=== PATIENT | male | born 1945 | race Caucasian/White ===

== ENCOUNTER 2017-04-09 15:19 | Observation (INO) | payer OTHER ==
[2017-04-09 16:00] VITALS: BMI 24.3
--- NOTE | 2017-04-09 17:03 | PDOC ---
History of Present Illness - General History Source: Patient Exam Limitations: No Limitations <Jazmine Villarreal - Last Filed: 04/10/17 01:19> <David Barnes - Last Filed: 04/10/17 19:25> - General Chief Complaint: Blood Pressure Problem Stated Complaint: CHEST PAIN Time Seen by Provider: 04/09/17 16:06 - History of Present Illness Initial Comments: 04/09/17 17:58 The patient is a 72 year old male, with a significant past medical history of hypertension and hyperlipidemia, who presents to the emergency department with chest pain and dizziness.Pt reports waking up feeling well, he had a mild headache this morning (which is typical for him) and promoted him to check his BP and he noticed it was a bit elevated so he took his losartan, he later took his BP and it was still slightly elevated so he took another losartan. He then began to feel some epigastric pressure w/o any sob, n/v, diaphoresis. later when he was standing/walking around, he developed dizizness/lightheadedness and felt diaphoretic and vomited nbnb. pt feels improved currently, EMS was called and he was given NTG and baby asa x3. Pt denies a history of exertional chest pain or sob, states he is fairly active. Pt does endorse feeling stressed at home as he is taking care of his infirm . He denies fever or chills. He denies any SOB prior or during the episode or any exertion. Allergies: None Past surgical history: Cholecystectomy (2013), tonsillectomy Social History: Former smoker (20 a day)(quit in 2013)(50 year history). PCP Dr. Lucho Gurrola (Jazmine Villarreal) Past History <Jazmine Villarreal - Last Filed: 04/10/17 01:19> - Past Medical History Anemia: No Asthma: No HTN: Yes Hypercholesterolemia: (Yes, HIGH TRIGLYCERIDES) - Surgical History Appendectomy: Yes Cholecystectomy: Yes (03/2014) - Immunization History Immunization Up to Date: Yes - Psycho/Social/Smoking Cessation Hx Anxiety: No Suicidal Ideation: No Smoking History: Former smoker Have you smoked in the past 12 months: No Number of Cigarettes Smoked Daily: 20 If you are a former smoker, when did you quit?: 2013 Information on smoking cessation initiated: No Hx Alcohol Use: No Drug/Substance Use Hx: No Substance Use Type: None Hx Substance Use Treatment: No <David Barnes - Last Filed: 04/10/17 19:25> - Past Medical History Allergies/Adverse Reactions: Allergies Allergy/AdvReac Type Severity Reaction Status Date / Time No Known Allergies Allergy Verified 04/09/15 16:59 Home Medications: Ambulatory Orders Docosahexanoic Acid/Epa [Fish Oil Softgel] 1 each PO DAILY 04/29/12 Cholecalciferol (Vitamin D3) [Vitamin D3] 1,000 unit PO DAILY 03/28/14 Lactobacillus Acidophilus [Bacid -] 1 each PO BID #14 tab 04/19/15 Losartan Potassium 25 mg PO DAILY 04/09/17 Review of Systems - Review of Systems Able to Perform ROS?: Yes <Jazmine Villarreal - Last Filed: 04/10/17 01:19> <David Barnes - Last Filed: 04/10/17 19:25> - Review of Systems Comments:: 04/09/17 17:58 CONSTITUTIONAL: No reported: Fever, Chills, Diaphoresis, Generalized Weakness, Malaise, Loss of Appetite HEENT: No reported: Rhinorrhea, Nasal Congestion, Throat Pain, Throat Swelling, Difficulty Swallowing, Mouth Swelling, Ear Pain, Eye Pain, Visual Changes CARDIOVASCULAR: Present: chest pain, lightheadedness. No reported: Syncope, Palpitations, Irregular Heart Rate, Peripheral Edema RESPIRATORY: No reported: Cough, Shortness of Breath, SOB with Exertion, Orthopnea, Wheezing , Stridor, Hemoptysis GASTROINTESTINAL: +Nausea, Vomiting, No reported: Abdominal pain, Abdominal Distension, Diarrhea, Constipation, Melena, Hematochezia GENITOURINARY: No reported: Dysuria, Frequency, Urgency, Hesitancy, Flank Pain, Genital Pain MUSCULOSKELETAL: No reported: Myalgia, Arthralgia, Joint Swelling, Back pain, Neck Pain SKIN: No reported: Rash, Itching, Pallor HEMEATOLOGIC/IMMUNOLOGIC: No reported: Easy Bleeding, Easy Bruising, Lymphadenopathy, Frequent infections ENDOCRINE: No reported: Unexplained Weight Gain, Unexplained Weight Loss, Heat Intolerance , Cold Intolerance NEUROLOGIC: No reported: Headache, Focal Weakness, Paresthesias, Vertigo, Unsteady Gait, Seizure, Mental Status Changes, Incontinence PSYCHIATRIC: No reported: Anxiety, Depression (Jazmine Villarreal) *Physical Exam <Jazmine Villarreal - Last Filed: 04/10/17 01:19> <David Barnes - Last Filed: 04/10/17 19:25> - Vital Signs Last Vital Signs Temp Pulse Resp BP Pulse Ox 98.1 F 59 L 18 141/77 95 04/10/17 19:11 04/10/17 19:11 04/10/17 19:11 04/10/17 19:11 04/10/17 09:00 - Physical Exam Comments: 04/09/17 17:58 GENERAL: The patient is awake, alert, and fully oriented, Nontoxic - in no acute distress. HEAD: Normocephalic, atraumatic. EYES: extraocular movements intact, sclera anicteric, conjunctiva clear. ENT: Normal voice, Moist mucous membranes, duller light reflex in R TM NECK: Normal range of motion, supple LUNGS: Breath sounds equal, clear to auscultation bilaterally. No wheezes, no rhonchi, no rales. HEART: Regular rate and rhythm, without murmur, rub or gallop. ABDOMEN: Soft, nontender, normoactive bowel sounds. No guarding, no rebound.No CVA tenderness EXTREMITIES: Normal range of motion, no edema. No clubbing or cyanosis. No cords, erythema, or tenderness. NEUROLOGICAL: No facial assymetry, Normal speech, normal motor 5/5 in upper/ lower, abnormal finger to nose and rapid alternative movenents in LUE, non ataxic gait PSYCH: Normal mood, normal affect. SKIN: Warm, Dry, normal turgor. (Jazmine Villarreal) Heart Score/ECG Review <Jazmine Villarreal - Last Filed: 04/10/17 01:19> <David Barnes - Last Filed: 04/10/17 19:25> - ECG Impressions Comment:: 04/09/17 18:31 Twelve-lead EKG was performed and reviewed by me. There is normal sinus rhythm with a normal rate. Rate of 63 The axis is normal. The intervals are normal. There is normal R wave progression There are no ST or T wave abnormalities. Impression: Normal twelve-lead EKG (David Barnes) ED Treatment Course - LABORATORY CBC & Chemistry Diagram: 04/09/17 17:05 04/09/17 17:05 <Jazmine Villarreal - Last Filed: 04/10/17 01:19> - LABORATORY CBC & Chemistry Diagram: 04/09/17 17:05 04/09/17 17:05 <David Barnes - Last Filed: 04/10/17 19:25> - ADDITIONAL ORDERS Additional order review: Laboratory Results 04/10/17 00:21 Ur Specific [place] 1.010 04/09/17 17:05 RBC 4.75 MCV 88.5 MCHC 34.6 RDW 13.0 MPV 9.9 Neutrophils % 80.7 Lymphocytes % 10.8 D Monocytes % 6.4 Eosinophils % 1.3 Basophils % 0.8 - RADIOLOGY Radiology Studies Ordered: Category Date Time Status HEAD CT WITHOUT CONTRAST [CT] Stat CT Scan 04/09/17 23:03 Completed CHEST X-RAY PORTABLE* [RAD] Stat Radiology 04/09/17 16:15 Completed - Medications Given in the ED: ED Medications Discontinued Medications Generic Name Dose Route Start Last Admin Trade Name Freq PRN Reason Stop Dose Admin Acetaminophen 650 mg 04/09/17 19:59 04/09/17 20:06 Tylenol - PO 04/09/17 20:00 650 mg ONCE ONE Administration Al Hydroxide/Mg Hydroxide 30 ml 04/09/17 17:04 04/09/17 18:13 Mylanta Suspension - PO 04/09/17 17:05 30 ml ONCE ONE Administration Famotidine/Sodium Chloride 20 50 mls @ 100 mls/hr 04/09/17 17:04 04/09/17 18:12 mg/ Miscellaneous IVPB 04/09/17 17:33 100 mls/hr ONCE ONE Administration Sodium Chloride 1,000 mls @ 1,000 mls/hr 04/09/17 19:53 04/09/17 20:06 Normal Saline - IV 04/09/17 20:52 1,000 mls/hr .Q1H ONE Administration Sodium Chloride 1,000 mls @ 1,000 mls/hr 04/09/17 21:52 04/09/17 21:55 Normal Saline - IV 04/09/17 22:51 1,000 mls/hr .Q1H ONE Administration Meclizine HCl 25 mg 04/09/17 18:30 04/09/17 19:12 Antivert - PO 04/09/17 18:31 25 mg ONCE ONE Administration Medical Decision Making <Jazmine Villarreal - Last Filed: 04/10/17 01:19> <David Barnes - Last Filed: 04/10/17 19:25> - Medical Decision Making 04/09/17 17:05 72y M hx of hl, htn (noncomplaint with meds), former smoker, prseents with chest pain. Pt notes that he had a mild headache today which led him to take his BP, was noted to be high so he took a losartan, later checked his bp again and was elevated, then developed some epigastric/substernal prsesure sensation that was constant, and later had several episodes of dizziness when standing up which led to diaphoresis, and n/v. pt given 1x ntg, antiemetic and 3 baby asa by EMS. on exam the pt appears well and in no distress vitals wnl here differential includes pancreatitis, gastritis, anemia, metabolic derangement, consider acs although his symptoms are someone atypical will ck labs, trops, lipase will give pepcid/maalox PCP Dr. Lucho Gurrola 04/09/17 18:30 upon further evaluation it seems the pts dizziness was the first thing to bother him, followed by vomiting and chest discomfort. ?vertigo will give meclizine labs reviewed and are unremarkable 04/09/17 23:04 pt still feeling persistent dizziness when ambulating, as well as when turning his head or nodding his head. however states he feels fine when he is sitting still. will obtain CT due to persisetnet symptoms and admit for observation 04/10/17 00:52 ct negative pt does complaing of fullness of his R ear - i suspect his dizziness/vertigo may be peripheral in nature, pts finger to nose and rapid alternating movements are slightly abnormal on LUE - will have pt be evluated by neuro will place in observation status will admit to hospitalist service. A portion of this note was documented by scribe services under my direction. I have reviewed the details of the note, within reason, and agree with the documentation with the following case summary and management plan written by me 04/10/17 01:[address] crichlow agreed with admission for further management Case discussed in detail with admitting physician including history, physical exam and ancillary studies. Admitting physician has assumed care for the patient, will follow all pending diagnostics and will complete the evaluation and treatment. (David Barnes) *DC/Admit/Observation/Transfer <Jazmine Villarreal - Last Filed: 04/10/17 01:19> - Discharge Dispostion Admit: Yes <David Barnes - Last Filed: 04/10/17 19:25> Diagnosis at time of Disposition: Vertigo Chest pain Qualifiers: Chest pain type: unspecified Qualified Code(s): R07.9 - Chest pain, unspecified - Discharge Dispostion Condition at time of disposition: Stable - Referrals - Attestations Scribe Attestion: 04/09/17 17:59 Documentation prepared by ALLISON Peterson, acting as medical office specialist for David Barnes MD. (Jazmine Villarreal)
[2017-04-09] MEDS ORDERED: FAMOTIDINE 20 MG/50 ML IVPB 20 MG in PREMIX 50 IVPB ONE (17:04)
[2017-04-09] MEDS ORDERED: MAG HYDROX/AL HYDROX/SIMETH 355 ML ORAL.SUSP PO ONE (17:04)
[2017-04-09 17:19] LABS: BASOPHIL 0.8 % (0-2.0); EOSINOPHIL 1.3 % (0-4.5); MCH 30.7 pg (25.7-33.7); MCHC 34.6 g/dl (32.0-35.9); MEAN CELL VOLUME 88.5 fl (80-96); MEAN PLT VOLUME 9.9 fl (7.5-11.1); NEUTROPHILS 80.7 % (42.8-82.8); PLATELET COUNT 153 K/MM3 (134-434); WHITE BLOOD COUNT 9.4 K/mm3 (4.0-10.0)
[2017-04-09 17:46] LABS: ALBUMIN 3.9 g/dl (3.4-5.0); ANION GAP 9 (8-16); CALCIUM 9.4 mg/dL (8.5-10.1); CO2 27 mmol/L (21-32); GLUCOSE,RANDOM 134 mg/dL (74-106)
[2017-04-09 17:48] LABS: TROPONIN I < 0.02 ng/ml (0.00-0.05)
[2017-04-09 17:49] LABS: ALK PHOS 59 U/L (45-117); COCKROFT - GAULT 73.99; CREATININE 1.1 mg/dL (0.7-1.3); SGOT/AST 55 U/L (15-37); SGPT/ALT 56 U/L (12-78); TOT PROT 7.3 g/dl (6.4-8.2)
[2017-04-09 18:06] LABS: INR 1.11 (0.82-1.09); PROTHROMBIN TIME (PATIENT) 12.2 SEC (9.98-11.88)
[2017-04-09] MEDS ORDERED: FAMOTIDINE 20 MG/50 ML IVPB 50 ML IVPB ONE (18:11)
[2017-04-09] MEDS ORDERED: MAG HYDROX/AL HYDROX/SIMETH 30 ML UNIT-DOSE CUP ONE (18:11)
[2017-04-09] MEDS ORDERED: MECLIZINE HCL 25 MG TABLET (FP) PO ONE (18:30)
[2017-04-09] MEDS ORDERED: MECLIZINE HCL 25 MG TABLET (FP) ONE (19:10)
[2017-04-09] MEDS ORDERED: SODIUM CHLORIDE 1,000 ML IV ONE ×2 (19:53→21:52)
[2017-04-09] MEDS ORDERED: ACETAMINOPHEN 325 MG TABLET (FP) PO ONE (19:59)
[2017-04-09] MEDS ORDERED: ACETAMINOPHEN 325 MG TABLET (FP) ONE (20:04)
[2017-04-09 22:57] LABS: TROPONIN I < 0.02 ng/ml (0.00-0.05)
[2017-04-10 00:32] LABS: URINE APPEARANCE CLEAR; URINE BILIRUBIN NEGATIVE (NEGATIVE); URINE BLOOD NEGATIVE (NEGATIVE); URINE COLOR COLORLESS; URINE GLUCOSE (UA) 3+ (NEGATIVE); URINE KETONE NEGATIVE (NEGATIVE); URINE LEUK ESTERASE NEGATIVE (NEGATIVE); URINE NITRITE NEGATIVE (NEGATIVE); URINE PROTEIN NEGATIVE (NEGATIVE); URINE UROBILINOGEN NEGATIVE E.U./dl (0.2-1.0)
--- NOTE | 2017-04-10 02:35 | PN ---
<Priscilla Barboza - Last Filed: 04/10/17 02:30> Teaching Attending Note Name of Resident: Nereyda Peters ATTENDING PHYSICIAN STATEMENT ASSESSMENT AND PLAN: Chest pain ACS ruled out, will get ECHO in Am and continue ASA HTN- continue Losartan and counselled on medication adherence DIzziness- Rule out central vs peripheral vertigo Orthostatics, Gonzalo maneuver, Rhomberg Consider neurology consult IVF Brittani prn <Sandy Marquez - Last Filed: 04/10/17 02:43> Teaching Attending Note ATTENDING PHYSICIAN STATEMENT I saw and evaluated the patient. I reviewed the resident's note and discussed the case with the resident. I agree with the resident's findings and plan as documented. SUBJECTIVE: 72 yo M presents with chest pain and dizziness for 1 day. Patient states his dizziness is exacerbated by standing. Patient states he woke up this morning and experienced dizziness that he thought was associated with a spike in his BP. Patient states he is noncompliant with his BP medications. He endorses associated nausea. Patient denies vomiting and diarrhea. Patient denies changes in vision, however, patient notes a buzzing in his R ear that he is unsure whether is related. Patient notes that when trying to flush his ear by popping it in the ED he induced the dizziness sensation. He also endorses regular headaches. PMHx: HTN, HLD OBJECTIVE: Last Vital Signs Temp Pulse Resp BP Pulse Ox 97.4 F L 65 17 120/62 95 04/10/17 02:07 04/10/17 02:07 04/10/17 02:07 04/10/17 02:07 04/10/17 02:07 GENERAL: Awake, alert, and fully oriented, in no acute distress HEENT: Atraumatic. PERRLA, EOMI. Moist mucosa. No JVD. No nystagmus. LUNGS: No distress, speaks full sentences, clear to auscultation bilaterally HEART: Regular rate and rhythm, normal S1 and S2, no murmurs, rubs or gallops, peripheral pulses normal and equal bilaterally. ABDOMEN: Soft, nontender, normoactive bowel sounds. No guarding, no rebound. No masses EXTREMITIES: Normal inspection, Normal range of motion, no edema. No clubbing or Cyanosis. NEUROLOGICAL: Cranial nerves II through XII grossly intact. Normal speech, gait not assessed, no focal sensorimotor deficits SKIN: Warm, Dry, normal turgor, no rashes or lesions noted. CBCD WBC 9.4 K/mm3 (4.0-10.0) 04/09/17 17:05 RBC 4.75 M/mm3 (4.00-5.60) 04/09/17 17:05 Hgb 14.6 GM/dL (11.7-16.9) D 04/09/17 17:05 Hct 42.0 % (35.4-49) 04/09/17 17:05 MCV 88.5 fl (80-96) 04/09/17 17:05 MCHC 34.6 g/dl (32.0-35.9) 04/09/17 17:05 RDW 13.0 % (11.9-15.9) 04/09/17 17:05 Plt Count 153 K/MM3 (134-434) D 04/09/17 17:05 MPV 9.9 fl (7.5-11.1) 04/09/17 17:05 CMP Sodium 136 mmol/L (136-145) 04/09/17 17:05 Potassium 4.5 mmol/L (3.5-5.1) 04/09/17 17:05 Chloride 100 mmol/L (98-107) 04/09/17 17:05 Carbon Dioxide 27 mmol/L (21-32) 04/09/17 17:05 Anion Gap 9 (8-16) 04/09/17 17:05 BUN 13 mg/dL (7-18) 04/09/17 17:05 Creatinine 1.1 mg/dL (0.7-1.3) D 04/09/17 17:05 Creat Clearance w eGFR > 60 (>60) 04/09/17 17:05 Calcium 9.4 mg/dL (8.5-10.1) 04/09/17 17:05 Total Bilirubin 1.0 mg/dL (0.2-1.0) D 04/09/17 17:05 AST 55 U/L (15-37) H D 04/09/17 17:05 ALT 56 U/L (12-78) D 04/09/17 17:05 Alkaline Phosphatase 59 U/L (45-117) D 04/09/17 17:05 Total Protein 7.3 g/dl (6.4-8.2) 04/09/17 17:05 Albumin 3.9 g/dl (3.4-5.0) D 04/09/17 17:05 Documentation is prepared by Sandy Marquez acting as medical esthetician for Priscilla Barboza M.D.
[2017-04-10] MEDS: HEPARIN NA (PORCINE) 5,000 UNITS/ML 1ML VIAL SQ SCH ×3 (05:11→22:11)
[2017-04-10] MEDS: ATORVASTATIN CA 80 MG TABLET (FP) PO SCH ×2 (05:11→22:11)
--- NOTE | 2017-04-10 05:26 | HP ---
CHIEF COMPLAINT: light headedness and unsteady gate PCP: Lucho Gurrola MD Neurologist: Dr Maximo De Paz HISTORY OF PRESENT ILLNESS: 72 year old male, with a significant PMH of HTN, HLD, GERD, who presents to the ED via EMS with unstedy gate and lightheadedness. patient reports unsteady gate, lightheadedness, that started this morning. Pt reports waking up feeling like his normal state of health when he checked his BP and was mild elevated 137/"normal" 5:30 am, he took 25mg of losartan, rechecked BP 165/ "normal", took another 25 mg losartan, rechecked BP 170/"normal" than took 50mg more of losartan, patient suddenly to feel nonradiating retrosternal chest tightness, and diaphoresis, w/o sob. He latter noticed he was feeling lightheadedness,( room not spinning), difficulty walking, standing, N/V x3 NBNB. symptoms aggravated with body position, eye movement, head movement, Valsalva maneuver. denied any elevating factors, EMS was called and he was given NTG and baby asa x3. He curently denies CP, SOB, Fever, chills, vision changes, speech difficulty, neck pain or stiffness, photophobia, numbness, tingling, or weakness to the extremities. he reports no recent head trauma or LOC/syncope. denied any focal weakness, speech changes, visual changes (blurred or double vision). patient denied ever having these symptoms before, no sick contact. ER course was notable for: (1)CT head neg for hemorrhage (2)EKG NS, neg trop x3 (3) IVF Recent Travel: no PAST MEDICAL HISTORY: HTN, HLD, PAST SURGICAL HISTORY:Cholecystectomy (2013),Appendectomy, tonsillectomy Social History: Smoking:Former smoker (20 a day)(quit in 2013)(50 year history). Alcohol:no Drugs: no Family History: Allergies No Known Allergies Allergy (Verified 04/09/15 16:59) HOME MEDICATIONS: Home Medications Medication Instructions Recorded Docosahexanoic Acid/Epa [Fish Oil 1 each PO DAILY 04/29/12 Softgel] Cholecalciferol (Vitamin D3) 1,000 unit PO DAILY 03/28/14 [Vitamin D3] Lactobacillus Acidophilus [Bacid -] 1 each PO BID #14 tab 04/19/15 Losartan Potassium 25 mg PO DAILY 04/09/17 REVIEW OF SYSTEMS CONSTITUTIONAL: Absent: fever, chills, diaphoresis, generalized weakness, malaise, loss of appetite, weight change HEENT: Absent: rhinorrhea, nasal congestion, throat pain, throat swelling, difficulty swallowing, mouth swelling, ear pain, eye pain, visual changes CARDIOVASCULAR: Absent: chest pain, syncope, palpitations, irregular heart rate, lightheadedness , peripheral edema RESPIRATORY: Absent: cough, shortness of breath, dyspnea with exertion, orthopnea, wheezing, stridor, hemoptysis GASTROINTESTINAL: Absent: abdominal pain, abdominal distension, nausea, vomiting, diarrhea, constipation, melena, hematochezia GENITOURINARY: Absent: dysuria, frequency, urgency, hesitancy, hematuria, flank pain, genital pain MUSCULOSKELETAL: Absent: myalgia, arthralgia, joint swelling, back pain, neck pain SKIN: Absent: rash, itching, pallor HEMATOLOGIC/IMMUNOLOGIC: Absent: easy bleeding, easy bruising, lymphadenopathy, frequent infections ENDOCRINE: Absent: unexplained weight gain, unexplained weight loss, heat intolerance, cold intolerance NEUROLOGIC: Absent: headache, focal weakness or paresthesias, dizziness, unsteady gait, seizure, mental status changes, bladder or bowel incontinence PSYCHIATRIC: Absent: anxiety, depression, suicidal or homicidal ideation, hallucinations. PHYSICAL EXAMINATION Vital Signs - 24 hr 04/10/17 02:07 Temperature 97.4 F L Pulse Rate [ 65 Right Radial] Respiratory 17 Rate Blood Pressure 120/62 [Left Arm] O2 Sat by Pulse 95 Oximetry (%) GENERAL: Awake, alert, and fully oriented, in no acute distress. sitting on edge of bed comfortably. HEAD: Normal with no signs of trauma. EYES: Pupils equal, round and reactive to light, extraocular movements intact, sclera anicteric, conjunctiva clear. No lid lag. EARS, NOSE, THROAT: Ears normal, nares patent, oropharynx clear without exudates. dry mucous membranes. bilateral otoscopy:no bulging, no mobility OM, tympanic membrane intact, no effusion, no erythema noted, NECK: Normal range of motion, supple without lymphadenopathy, JVD, or masses. LUNGS: Breath sounds equal, clear to auscultation bilaterally. No wheezes, and no crackles. No accessory muscle use. HEART: Regular rate and rhythm, normal S1 and S2 without murmur, rub or gallop. ABDOMEN: Soft, nontender, not distended, normoactive bowel sounds, no guarding, no rebound, no masses. No hepatomegaly or splenomegaly. MUSCULOSKELETAL: Normal range of motion at all joints. No bony deformities or tenderness. No CVA tenderness. LOWER EXTREMITIES: 2+ pulses, warm, well-perfused. No calf tenderness. No peripheral edema. NEUROLOGICAL: Cranial nerves II-XII intact. Normal speech. + Romberg, +3 DTR patellar tendon BL, BL + bambinski toes up going, unsteady gait especailly with with quick turning around, strength 5/5 in upper and lower ext bilaterally. soft touch intact symmetrically. neg Gonzalo maneuver. PSYCHIATRIC: Cooperative. Good eye contact. Appropriate mood and affect. SKIN: Warm, dry, normal turgor, no rashes or lesions noted, normal capillary refill. CT head: No CT evidence of acute intracranial pathology. Mild bilateral ethmoid sinus mucosal thickening is seen. There is partial imaging of several small left maxillary sinus mucus retention cysts/polyps. CXR; pending read ASSESSMENT/PLAN: 72 year old male, with a significant PMH of HTN, HLD, GERD, who presents to the ED via EMS with unsteady gate and lightheadedness.unsteady gate, lightheadedness, chest tightness, that started this morning after elevated BP and taking losartan total of 100mg. Lightheadedness and neruo symptoms: postural and gate instability, + Romberg, + 3 DTR patellar tendon, orthostatic negative, neg Gonzalo maneuver. single episode of vertigo lasting several hours more likely Central less likely peripheral dizziness, may be due to migraine or to transient ischemia of the labyrinth or brainstem possibly 2/2 possibly medication induced or cerebellum v metabolic derangement v less likely MS pt still feeling persistent dizziness when ambulating and when closing Eyes, CT head w/o contrast negative MRI Ordered consult Neurolgy Zofran prn IVF swallow study Chest pain: ACS ruled out: neg trop, no changes on EKG, curerntly no chest pain or sob continue ASA, Statin, ECHO in Am possible chronic sinusitis: Mild bilateral ethmoid sinus mucosal thickening, There is partial imaging of several small left maxillary sinus mucus retention cysts/polyps seen on CT no current signs of infection: no fevers, chills, leukocytosis no antibiotics at this time will monitor with conservative management HTN- BP mild elevated, orthostatic negative, supine 145/82 hr 62, sitting 154/ 92 hr 62, standing 158/89 hr 68. continue Losartan counselled on medication compliance GERD PPI FEN NPO except meds, resassess after bed side sweallow study NS 100cc/hr replete electrolytes as needed DVT: Heprin 5,000 units sq q8h GI: PPI Dispo: monitor on non cardiac tele Visit type - Emergency Visit Emergency Visit: Yes ED Registration Date: 04/10/17 Care time: The patient presented to the Emergency Department on the above date and was hospitalized for further evaluation of their emergent condition. - New Patient This patient is new to me today: Yes Date on this admission: 04/10/17 - Critical Care Critical Care patient: No
--- NOTE | 2017-04-10 11:51 | PN ---
Progress Note, Physician Chief Complaint: Mr Ayno says he is still having dizziness but improving. No cp, sob, n/v. - Current Medication List Current Medications: Active Medications Aspirin (Ecotrin -) 325 mg PO DAILY [facility] Atorvastatin Calcium (Lipitor -) 80 mg PO HS [facility] Last Admin: 04/10/17 05:11 Dose: 80 mg Heparin Sodium (Porcine) (Heparin -) 5,000 unit SQ TID [facility] Last Admin: 04/10/17 05:11 Dose: 5,000 unit Losartan Potassium (Cozaar -) 25 mg PO DAILY [facility] Meclizine HCl (Antivert -) 25 mg PO TID PRN PRN Reason: VERTIGO Ranitidine HCl (Zantac -) 150 mg PO DAILY [facility] - Objective Vital Signs: Vital Signs Temperature 98.3 F 04/10/17 06:20 Pulse Rate 64 04/10/17 06:20 Respiratory Rate 20 04/10/17 06:20 Blood Pressure 138/79 04/10/17 06:20 O2 Sat by Pulse Oximetry (%) 95 04/10/17 03:00 Constitutional: Yes: Well Nourished, No Distress, Calm Cardiovascular: Yes: Regular Rate and Rhythm. No: Gallop, Murmur, Rub Respiratory: Yes: Regular, CTA Bilaterally. No: Rales, Rhonchi, Wheezes Gastrointestinal: Yes: Normal Bowel Sounds, Soft. No: Distention, Tenderness Extremities: Yes: WNL Edema: No Labs: INR, PTT INR 1.11 (0.82-1.09) 04/09/17 17:05 Problem List - Problems (1) Vertigo Assessment/Plan: -evaluate for CVA -MRI pending -ECHO and carotid ultrasound ordered -improving -prn meclizine -neurology consulted Code(s): R42 - DIZZINESS AND GIDDINESS (2) HTN (hypertension) Assessment/Plan: -continue losartan Code(s): I10 - ESSENTIAL (PRIMARY) HYPERTENSION (3) Hyperlipidemia Assessment/Plan: -continue lipitor Code(s): E78.5 - HYPERLIPIDEMIA, UNSPECIFIED
[2017-04-10] MEDS ORDERED: ONDANSETRON 4 MG/2 ML VIAL IVPB PRN (11:54)
[2017-04-10] MEDS: ASPIRIN 325 MG ENTERIC COATED TABLET (FP) PO SCH (11:56)
[2017-04-10] MEDS: LOSARTAN POTASSIUM 25 MG TABLET PO SCH (11:56)
[2017-04-10] MEDS: RANITIDINE HCL 150 MG TABLET (FP) PO SCH (11:56)
[2017-04-10] MEDS: MECLIZINE HCL 25 MG TABLET (FP) PO PRN (12:02)
--- NOTE | 2017-04-10 16:50 | CONSULT ---
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 PMH sig for HTN, Chol, GERD. Maintained on Cozaar, lipitor, Ranitidine and ASA. Known to me from evaluation of Carpal Tunnel syndromes in the past. S/P L CT release but recently has recurrent symptoms, bilaterally. Chronic Right-sided tinnitus and b/l hearing loss. Chronic, mild, holocranial pressing headaches, worse in the morning. Yesterday awoke with a dizzy, whoosy feeling which waxed and waned all day. Increased by turning his head from [id number] and by nodding. When severe he had nausea, vomiting and unsteady gait, requiring his daughter's assistance to walk. Had spinning getting up out of MRI just a few minutes ago but generally feeling better today on meclizine IN ER CT of head (reviewed): Normal Today MRI of brain (reviwed): Normal study with scattered periventricular, microvascular changes. KEO: No bruits. Cor: Reg. s/p Left CT release NEURO: MS/speech: Normal CN: II-XII: Normal without nystagmus except decreased hearing. Motor: No drift or tremor. Normal strength and reflexes. Toes downgoing. Coord: No FTN or HTS dystaxia. Sensory: Normal vibration in feet. Decreased pin in hands. Gait: Normal IMP: 1. New onset positional vertigo (probably on a labyrinthine basis, Left side most likely with Tinnitus and hearing loss. 2. Chronic headaches, possibly migraines 3. B/L Carpal tunnel syndromes. SUGGEST: Continue meclizine 25 mg PO TID. Neuro flu and ENT consultation/audiology on out patient basis. Assess need for antiplatelet Rx. If necessary D/C ASA (can cause/ worsen tinnitus) and change to plavix (75 mg). Thank you very much, Maximo De Paz MD
--- NOTE | 2017-04-10 19:16 | EKG ---
Test Reason : Blood Pressure : / mmHG Vent. Rate : 054 BPM Atrial Rate : 054 BPM P-R Int : 178 ms QRS Dur : 090 ms QT Int : 428 ms P-R-T Axes : 040 014 016 degrees QTc Int : 405 ms SINUS BRADYCARDIA OTHERWISE NORMAL ECG WHEN COMPARED WITH ECG OF 09-APR-2017 15:50, T WAVE AMPLITUDE HAS INCREASED IN ANTERIOR LEADS Confirmed by PAGE ABRAHAM MD ([id number]) on 04/10/2017 7:15:54 PM Referred By: Tonya ESCALANTE Confirmed By:PAGE ABRAHAM MD
--- NOTE | 2017-04-10 19:18 | EKG ---
Test Reason : Blood Pressure : / mmHG Vent. Rate : 063 BPM Atrial Rate : 063 BPM P-R Int : 178 ms QRS Dur : 080 ms QT Int : 420 ms P-R-T Axes : 040 022 024 degrees QTc Int : 429 ms NORMAL SINUS RHYTHM NORMAL ECG WHEN COMPARED WITH ECG OF 09-APR-2015 18:07, NO SIGNIFICANT CHANGE WAS FOUND Confirmed by PAGE ABRAHAM MD ([id number]) on 04/10/2017 7:18:17 PM Referred By: Confirmed By:PAGE ABRAHAM MD
[2017-04-11] MEDS ORDERED: ACETAMINOPHEN 325 MG TABLET (FP) PO PRN (04:23)
[2017-04-11] MEDS: HEPARIN NA (PORCINE) 5,000 UNITS/ML 1ML VIAL SQ SCH ×2 (06:29→14:46)
[2017-04-11] MEDS: MECLIZINE HCL 25 MG TABLET (FP) PO PRN ×2 (06:32→14:46)
[2017-04-11 07:52] LABS: MAGNESIUM 2.2 mg/dL (1.8-2.4); PHOSPHOROUS 2.5 mg/dL (2.5-4.9)
[2017-04-11 08:15] LABS: BASOPHIL 1.1 % (0-2.0); EOSINOPHIL 4.9 % (0-4.5); MCH 31.1 pg (25.7-33.7); MCHC 34.9 g/dl (32.0-35.9); MEAN CELL VOLUME 89.2 fl (80-96); MEAN PLT VOLUME 10.1 fl (7.5-11.1); NEUTROPHILS 58.2 % (42.8-82.8); PLATELET COUNT 113 K/MM3 (134-434); RDW 13.5 % (11.9-15.9); WHITE BLOOD COUNT 6.3 K/mm3 (4.0-10.0)
[2017-04-11 08:19] LABS: INR 1.14 (0.82-1.09); PROTHROMBIN TIME (PATIENT) 12.6 SEC (9.98-11.88)
[2017-04-11 08:22] LABS: ACTIVATED PTT 39.5 SECONDS (26.9-34.4)
[2017-04-11] MEDS: ASPIRIN 325 MG ENTERIC COATED TABLET (FP) PO SCH (09:41)
[2017-04-11] MEDS: LOSARTAN POTASSIUM 25 MG TABLET PO SCH (09:41)
[2017-04-11] MEDS: RANITIDINE HCL 150 MG TABLET (FP) PO SCH (09:41)
--- NOTE | 2017-04-11 11:35 | DS ---
Physical Examination Vital Signs: Vital Signs Temperature 98.3 F 04/11/17 09:00 Pulse Rate 64 04/11/17 09:00 Respiratory Rate 17 04/11/17 09:00 Blood Pressure 148/81 04/11/17 09:00 O2 Sat by Pulse Oximetry (%) 95 04/10/17 21:00 Constitutional: Yes: Well Nourished, No Distress, Calm Cardiovascular: Yes: Regular Rate and Rhythm. No: Gallop, Murmur, Rub Respiratory: Yes: Regular, CTA Bilaterally. No: Rales, Rhonchi, Wheezes Gastrointestinal: Yes: Normal Bowel Sounds, Soft. No: Distention, Tenderness Extremities: Yes: WNL Edema: No Labs: CBC, BMP 04/11/17 06:00 Discharge Summary Reason For Visit: CHEST PAIN VERTIGO Current Active Problems Chest pain (Acute) HTN (hypertension) (Acute) Vertigo (Acute) Hospital Course: (1) Vertigo Code(s): R42 - DIZZINESS AND GIDDINESS (2) HTN (hypertension) Code(s): I10 - ESSENTIAL (PRIMARY) HYPERTENSION (3) Hyperlipidemia Code(s): E78.5 - HYPERLIPIDEMIA, UNSPECIFIED Mr Ayon is a very pleasant 72 year old male who comes in with vertigo and hypertension. He was admitted under observation. He had head CT which was negative, he had an MRI that showed microvascular changes. This is consistent with his history of hypertension. He says he has not been taking his cozaar like prescribed, I encouraged him to take it as Dr Gurrola recommends. He was seen by neurology and recommended change from aspirin to plavix secondary to aspirin causing tinnitus. Currently he is stable for discharge home. He is to follow up with his PCP and ENT as an outpatient 33 minutes spent in preparation of this discharge Condition: Stable - Instructions Diet, Activity, Other Instructions: resume previous diet and activity. Refrain from driving while experiencing dizziness Referrals: Lucho Gurrola MD [Primary Care Provider] - Maximo De Paz MD [Staff Physician] - Nick Hanson MD [Staff Physician] - Disposition: HOME - Home Medications Comprehensive Discharge Medication List: Ambulatory Orders Docosahexanoic Acid/Epa [Fish Oil Softgel] 1 each PO DAILY 04/29/12 Cholecalciferol (Vitamin D3) [Vitamin D3] 1,000 unit PO DAILY 03/28/14 Lactobacillus Acidophilus [Bacid -] 1 each PO BID #14 tab 04/19/15 Losartan Potassium 25 mg PO DAILY 04/09/17 Atorvastatin Ca [Lipitor] 80 mg PO HS #30 tablet 04/11/17 Clopidogrel Bisulfate [Plavix -] 75 mg PO DAILY #30 tablet 04/11/17 Meclizine HCl [Antivert -] 25 mg PO TID PRN #60 tablet 04/11/17
[2017-04-11 14:06] VITALS: BP 121/63; PULSE 76; TEMP 98.2
== END 2017-04-11 17:30 | disposition home or self-care (01) ==
LOC: JER 15:19 → JERBED 04-10 00:55 → J7W 04-10 03:22
PROVIDERS: ADMIT Internal Medicine; ATTEND Internal Medicine
PROC: 3E033GC Introduction of Other Therapeutic Substance into Peripheral Vein, Percutaneous Approach (ICD-10-PCS; principal; 2017-04-10)
PROC: 3E0337Z Introduction of Electrolytic and Water Balance Substance into Peripheral Vein, Percutaneous Approach (ICD-10-PCS; 2017-04-10)
DX: R07.9 Chest pain, unspecified (principal); R42 Dizziness and giddiness; I10 Essential (primary) hypertension; E78.5 Hyperlipidemia, unspecified; Z87.891 Personal history of nicotine dependence; K21.9 Gastro-esophageal reflux disease without esophagitis; G56.03 Carpal tunnel syndrome, bilateral upper limbs; H81.12 Benign paroxysmal vertigo, left ear
CPT/HCPCS: 36415; 70450-TC; 70551-TC; 71010-TC; 80053; 80061; 81003; 82550; 83036; 83690; 83721; 83735; 84100; 84484; 85025; 85027; 85610; 85730; 93005; 93010; 99284-25; G0378; J1644

== ENCOUNTER → 2022-12-30 | Day surgery (SDC) | payer OTHER | END | disposition home or self-care (01) | LOC: JRADIR 08:58 | PROVIDERS: ATTEND Internal Medicine Geriatric Medicine | PROC: 0G9G3ZX Drainage of Left Thyroid Gland Lobe, Percutaneous Approach, Diagnostic (ICD-10-PCS; principal; 2022-12-30) | DX: E04.1 Nontoxic single thyroid nodule (principal) | CPT/HCPCS: 10005; 76942; 88173; 88305-TC ==

== ENCOUNTER → 2023-03-18 | Day surgery (SDC) | payer OTHER | END | disposition home or self-care (01) | LOC: JRADIR 08:53 | PROVIDERS: ATTEND Internal Medicine Geriatric Medicine | PROC: 0G9H3ZX Drainage of Right Thyroid Gland Lobe, Percutaneous Approach, Diagnostic (ICD-10-PCS; principal; 2023-03-18) | DX: E04.1 Nontoxic single thyroid nodule (principal) | CPT/HCPCS: 10005; 76942; 88173; 88305-TC ==

== ENCOUNTER 2024-12-26 11:56 | Inpatient (IN) | payer OTHER ==
[2024-12-26 13:52] LABS: BASO % 0.2 % (0-2.0); EOS % 1.5 % (0-4.5); LYMPH % 11.4 % (8-40); MCH 30.8 pg (25.7-33.7); MCHC 34.2 g/dl (32.0-35.9); MEAN CELL VOLUME 89.9 fl (80-96); MEAN PLT VOLUME 10.2 fl (7.5-11.1); MONO % 11.5 % (3.8-10.2); NEUT % 75.4 % (42.8-82.8); PLATELET COUNT 130 10^3/uL (134-434); RBC 4.55 M/mm3 (4.00-5.60); RDW 13.5 % (11.9-15.9); WHITE BLOOD COUNT 6.1 K/mm3 (4.0-10.0)
[2024-12-26 14:00] LABS: INR 1.19 (0.83-1.09); PROTHROMBIN TIME (PATIENT) 13.1 SEC (9.7-13.0)
[2024-12-26 14:03] LABS: ACTIVATED PTT 32.6 SECONDS (25.2-36.5)
[2024-12-26 14:16] LABS: POTASSIUM 4.8 mmol/L (3.5-5.1)
[2024-12-26 14:18] LABS: ALBUMIN 3.8 g/dl (3.4-5.0); BLOOD UREA NITROGEN 14.2 mg/dL (7-18); CALCIUM 9.5 mg/dL (8.5-10.1); MAGNESIUM 2.1 mg/dL (1.8-2.4)
[2024-12-26 14:23] LABS: BILIRUBIN,TOTAL 0.8 mg/dL (0.2-1); TOT PROT 7.3 g/dl (6.4-8.2)
[2024-12-26 17:00] LABS: EPI CELLS 1 /uL (0-25.1); HYALINE CASTS 0 /uL (0-3.1); URINE APPEARANCE CLEAR; URINE BACTERIA 3412 /uL (0-1359); URINE BILIRUBIN NEGATIVE (NEGATIVE); URINE COLOR YELLOW; URINE GLUCOSE (UA) NEGATIVE (NEGATIVE); URINE KETONE NEGATIVE (NEGATIVE); URINE LEUK ESTERASE TRACE (NEGATIVE); URINE NITRITE POSITIVE (NEGATIVE); URINE PROTEIN NEGATIVE (NEGATIVE); URINE RBC 3 /uL (0-23.9)
[2024-12-26] MEDS ORDERED: CEFTRIAXONE 1 G/50 ML PREMIX 50 ML IVPB ONE ×2 (17:50→18:03)
[2024-12-26] MEDS ORDERED: cefTRIAXone SODIUM 1 GM VIAL ONE (18:03)
[2024-12-26] MEDS ORDERED: ACETAMINOPHEN INJECTION 100 ML ONE (18:54)
[2024-12-26] MEDS: ACETAMINOPHEN 1000 MG/100 ML BAG IVPB ONE (18:56)
[2024-12-26] MEDS ORDERED: DONEPEZIL HCL 5 MG TABLET (FP) ONE (22:25)
[2024-12-26] MEDS ORDERED: HEPARIN NA (PORCINE) 5,000 UNITS/ML 1ML VIAL ONE (22:25)
[2024-12-26] MEDS ORDERED: ATORVASTATIN CA 80 MG TABLET (FP) ONE (22:25)
[2024-12-26] MEDS: ATORVASTATIN CA 80 MG TABLET (FP) PO SCH (22:38)
[2024-12-26] MEDS: HEPARIN NA (PORCINE) 5,000 UNITS/ML 1ML VIAL SQ SCH (22:38)
[2024-12-26] MEDS: DONEPEZIL HCL 10 MG TABLET (FP) PO SCH (22:38)
[2024-12-27 08:02] LABS: BASO % 0.2 % (0-2.0); EOS % 2.7 % (0-4.5); HEMATOCRIT 40.1 % (35.4-49); HEMOGLOBIN 13.9 GM/dL (11.7-16.9); LYMPH % 13.5 % (8-40); MCH 30.5 pg (25.7-33.7); MCHC 34.6 g/dl (32.0-35.9); MEAN CELL VOLUME 88.2 fl (80-96); MEAN PLT VOLUME 10.8 fl (7.5-11.1); MONO % 15.2 % (3.8-10.2); NEUT % 68.4 % (42.8-82.8); PLATELET COUNT 124 10^3/uL (134-434); RBC 4.55 M/mm3 (4.00-5.60); RDW 13.4 % (11.9-15.9); WHITE BLOOD COUNT 5.1 K/mm3 (4.0-10.0)
[2024-12-27 08:18] LABS: POTASSIUM 3.8 mmol/L (3.5-5.1)
[2024-12-27 08:28] LABS: CALCIUM 8.9 mg/dL (8.5-10.1)
[2024-12-27] MEDS ORDERED: CEFTRIAXONE 1 G/50 ML PREMIX 50 ML IVPB ONE (08:56)
[2024-12-27] MEDS ORDERED: HEPARIN NA (PORCINE) 5,000 UNITS/ML 1ML VIAL ONE ×2 (08:56→22:33)
[2024-12-27] MEDS: CEFTRIAXONE 1 G/50 ML PREMIX 50 ML IVPB SCH (09:07)
[2024-12-27] MEDS ORDERED: ACETAMINOPHEN 325 MG TABLET (FP) ONE (16:44)
[2024-12-27] MEDS: ACETAMINOPHEN 325 MG TABLET (FP) PO PRN (16:50)
[2024-12-27] MEDS ORDERED: DONEPEZIL HCL 5 MG TABLET (FP) ONE (22:33)
[2024-12-27] MEDS ORDERED: ATORVASTATIN CA 80 MG TABLET (FP) ONE (22:33)
[2024-12-28] MEDS: QUEtiapine FUMARATE 25 MG TABLET PO ONE (04:00)
[2024-12-28 08:21] LABS: HEMATOCRIT 43.7 % (35.4-49); HEMOGLOBIN 15.1 GM/dL (11.7-16.9); MCH 30.8 pg (25.7-33.7); MCHC 34.7 g/dl (32.0-35.9); MEAN CELL VOLUME 88.8 fl (80-96); MEAN PLT VOLUME 11.1 fl (7.5-11.1); PLATELET COUNT 150 10^3/uL (134-434); RBC 4.92 M/mm3 (4.00-5.60); RDW 13.5 % (11.9-15.9); WHITE BLOOD COUNT 8.7 K/mm3 (4.0-10.0)
[2024-12-28 08:40] LABS: POTASSIUM 3.6 mmol/L (3.5-5.1)
[2024-12-28 09:00] LABS: BLOOD UREA NITROGEN 18.3 mg/dL (7-18)
[2024-12-28 09:01] LABS: CALCIUM 9.2 mg/dL (8.5-10.1)
[2024-12-28 09:03] LABS: CREATININE 1.1 mg/dL (0.55-1.3)
[2024-12-28] MEDS: THIAMINE HCL 200 MG/2 ML VIAL IVPB SCH (17:55)
[2024-12-28] MEDS: LACTOBACILLUS ACIDOPHILUS 1 TABLET PO SCH (21:44)
[2024-12-29 07:51] LABS: BASO % 0.2 % (0-2.0); EOS % 0.2 % (0-4.5); HEMATOCRIT 44.8 % (35.4-49); LYMPH % 4.9 % (8-40); MCH 30.2 pg (25.7-33.7); MCHC 33.5 g/dl (32.0-35.9); MEAN CELL VOLUME 90.2 fl (80-96); MEAN PLT VOLUME 11.1 fl (7.5-11.1); NEUT % 86.7 % (42.8-82.8); PLATELET COUNT 154 10^3/uL (134-434); RBC 4.97 M/mm3 (4.00-5.60); RDW 13.5 % (11.9-15.9); WHITE BLOOD COUNT 15.8 K/mm3 (4.0-10.0)
[2024-12-29 08:05] LABS: POTASSIUM 3.5 mmol/L (3.5-5.1)
[2024-12-29 08:13] LABS: BLOOD UREA NITROGEN 23.1 mg/dL (7-18); CALCIUM 9.4 mg/dL (8.5-10.1); MAGNESIUM 2.4 mg/dL (1.8-2.4)
[2024-12-29] MEDS ORDERED: PATIENT'S OWN MEDICATION (NON-FORMULARY) (Docosahexanoic Acid/Epa [Fish Oil Softgel] 1 EAC PO SCH (10:00)
[2024-12-29] MEDS: CHOLECALCIFEROL (VIT D3) 1,000 UNIT (25 MCG) TABLET PO SCH (10:18)
[2024-12-30 07:43] LABS: BASO % 0.1 % (0-2.0); EOS % 1.1 % (0-4.5); HEMATOCRIT 41.8 % (35.4-49); HEMOGLOBIN 14.4 GM/dL (11.7-16.9); LYMPH % 11.1 % (8-40); MCH 30.5 pg (25.7-33.7); MCHC 34.5 g/dl (32.0-35.9); MEAN CELL VOLUME 88.4 fl (80-96); MEAN PLT VOLUME 11.1 fl (7.5-11.1); MONO % 10.5 % (3.8-10.2); NEUT % 77.2 % (42.8-82.8); PLATELET COUNT 156 10^3/uL (134-434); RBC 4.74 M/mm3 (4.00-5.60); RDW 13.5 % (11.9-15.9); WHITE BLOOD COUNT 9.1 K/mm3 (4.0-10.0)
[2024-12-30 08:02] LABS: POTASSIUM 3.4 mmol/L (3.5-5.1)
[2024-12-30 08:04] LABS: BLOOD UREA NITROGEN 22.2 mg/dL (7-18); CALCIUM 8.8 mg/dL (8.5-10.1); MAGNESIUM 2.3 mg/dL (1.8-2.4)
[2024-12-30 08:07] LABS: CREATININE 1.1 mg/dL (0.55-1.3)
[2024-12-30 08:08] LABS: PHOSPHOROUS 2.6 mg/dL (2.5-4.9)
[2024-12-30] MEDS: ASPIRIN 81 MG CHEWABLE TABLETS PO SCH (10:03)
[2024-12-30] MEDS: metoPROLOL SUCCINATE 25 MG TAB.SR.24H (FP) PO SCH (10:03)
[2024-12-30] MEDS: POTASSIUM CHLORIDE TABS 20 MEQ TABLET.ER (FP) PO SCH (21:20)
[2024-12-31] MEDS: ACETAMINOPHEN 1000 MG/100 ML BAG IVPB ONE (02:54)
[2024-12-31] MEDS: HALOPERIDOL LACTATE 5 MG/ML IM ONE (05:59)
[2024-12-31 08:15] LABS: POTASSIUM 4.4 mmol/L (3.5-5.1)
[2024-12-31 08:19] LABS: ALBUMIN 3.5 g/dl (3.4-5.0); BLOOD UREA NITROGEN 20.4 mg/dL (7-18); CALCIUM 9.1 mg/dL (8.5-10.1); MAGNESIUM 2.3 mg/dL (1.8-2.4)
[2024-12-31 08:23] LABS: PHOSPHOROUS 1.8 mg/dL (2.5-4.9)
[2024-12-31 08:24] LABS: BILIRUBIN,TOTAL 1.2 mg/dL (0.2-1); TOT PROT 6.8 g/dl (6.4-8.2)
[2024-12-31] MEDS: POTASSIUM CHLORIDE TABS 20 MEQ TABLET.ER (FP) PO SCH (12:27)
[2024-12-31] MEDS: hydrOXYzine PAMOATE 25 MG CAPSULE (FP) PO PRN (15:44)
[2024-12-31] MEDS: LORazepam 2 MG/ML SDV VIAL IVPUSH ONE (16:21)
[2025-01-01 11:00] LABS: HEMOGLOBIN 15.3 GM/dL (11.7-16.9); MCH 30.6 pg (25.7-33.7); MCHC 34.8 g/dl (32.0-35.9); MEAN CELL VOLUME 87.9 fl (80-96); MEAN PLT VOLUME 11.3 fl (7.5-11.1); PLATELET COUNT 137 10^3/uL (134-434); RBC 5.01 M/mm3 (4.00-5.60); RDW 13.5 % (11.9-15.9); WHITE BLOOD COUNT 6.4 K/mm3 (4.0-10.0)
[2025-01-01] MEDS: ASPIRIN COATED 81 MG TABLET.EC PO SCH (11:05)
[2025-01-01 11:26] LABS: POTASSIUM 4.1 mmol/L (3.5-5.1)
[2025-01-01 11:30] LABS: ALBUMIN 3.5 g/dl (3.4-5.0); CALCIUM 9.2 mg/dL (8.5-10.1)
[2025-01-01 11:31] LABS: BLOOD UREA NITROGEN 20.9 mg/dL (7-18)
[2025-01-01 11:34] LABS: PHOSPHOROUS 2.5 mg/dL (2.5-4.9)
[2025-01-01 11:35] LABS: BILIRUBIN,TOTAL 1.2 mg/dL (0.2-1); MAGNESIUM 2.4 mg/dL (1.8-2.4); TOT PROT 6.9 g/dl (6.4-8.2)
[2025-01-01] MEDS: FAMOTIDINE 20 MG TABLET PO SCH (15:53)
[2025-01-01] MEDS: SIMETHICONE 80 MG TAB.CHEW (FP) PO PRN (21:47)
[2025-01-02] MEDS: KETOROLAC TROMETHAMINE 15 MG/ML VIAL IVPUSH ONE (04:10)
[2025-01-02 07:15] LABS: BASO % 0.8 % (0-2.0); EOS % 4.3 % (0-4.5); HEMOGLOBIN 14.6 GM/dL (11.7-16.9); LYMPH % 15.5 % (8-40); MCH 30.3 pg (25.7-33.7); MEAN CELL VOLUME 89.1 fl (80-96); MEAN PLT VOLUME 10.9 fl (7.5-11.1); MONO % 11.4 % (3.8-10.2); PLATELET COUNT 149 10^3/uL (134-434); RBC 4.83 M/mm3 (4.00-5.60); RDW 13.3 % (11.9-15.9); WHITE BLOOD COUNT 7.1 K/mm3 (4.0-10.0)
[2025-01-02 07:29] LABS: POTASSIUM 4.2 mmol/L (3.5-5.1)
[2025-01-02 07:37] LABS: ALBUMIN 3.4 g/dl (3.4-5.0); BLOOD UREA NITROGEN 23.7 mg/dL (7-18)
[2025-01-02 07:38] LABS: MAGNESIUM 2.3 mg/dL (1.8-2.4)
[2025-01-02 07:40] LABS: PHOSPHOROUS 3.1 mg/dL (2.5-4.9)
[2025-01-02 07:42] LABS: BILIRUBIN,TOTAL 1.3 mg/dL (0.2-1); TOT PROT 6.5 g/dl (6.4-8.2)
[2025-01-02 14:44] VITALS: BMI 24.3
[2025-01-02] MEDS: QUEtiapine FUMARATE 25 MG TABLET PO SCH (22:48)
[2025-01-03] MEDS: hydrOXYzine PAMOATE 25 MG CAPSULE (FP) PO ONE (01:14)
[2025-01-03] MEDS: QUEtiapine FUMARATE 25 MG TABLET PO ONE (01:14)
[2025-01-03 07:09] LABS: BASO % 0.4 % (0-2.0); EOS % 3.7 % (0-4.5); HEMOGLOBIN 14.5 GM/dL (11.7-16.9); LYMPH % 12.5 % (8-40); MCH 30.7 pg (25.7-33.7); MCHC 34.4 g/dl (32.0-35.9); MEAN CELL VOLUME 89.1 fl (80-96); MEAN PLT VOLUME 11.3 fl (7.5-11.1); MONO % 11.8 % (3.8-10.2); NEUT % 71.6 % (42.8-82.8); PLATELET COUNT 136 10^3/uL (134-434); RBC 4.71 M/mm3 (4.00-5.60); RDW 13.1 % (11.9-15.9); WHITE BLOOD COUNT 7.7 K/mm3 (4.0-10.0)
[2025-01-03 07:24] LABS: BLOOD UREA NITROGEN 24.2 mg/dL (7-18); CALCIUM 8.9 mg/dL (8.5-10.1)
[2025-01-03 07:28] LABS: PHOSPHOROUS 3.4 mg/dL (2.5-4.9)
[2025-01-03] MEDS ORDERED: LORazepam 2 MG/ML SDV VIAL IVPUSH ONE (14:00)
[2025-01-03] MEDS: LORazepam 0.5 MG TABLET PO ONE (18:28)
[2025-01-03] MEDS: ATORVASTATIN CA 40 MG TABLET (FP) PO SCH (21:18)
[2025-01-03] MEDS ORDERED: ACETAMINOPHEN 325 MG TABLET (FP) PO PRN (22:57)
[2025-01-04 09:39] LABS: BASO % 0.3 % (0-2.0); HEMATOCRIT 40.7 % (35.4-49); HEMOGLOBIN 14.4 GM/dL (11.7-16.9); LYMPH % 10.2 % (8-40); MCH 30.9 pg (25.7-33.7); MCHC 35.3 g/dl (32.0-35.9); MEAN CELL VOLUME 87.6 fl (80-96); MEAN PLT VOLUME 11.6 fl (7.5-11.1); MONO % 11.5 % (3.8-10.2); PLATELET COUNT 147 10^3/uL (134-434); RBC 4.65 M/mm3 (4.00-5.60); RDW 13.3 % (11.9-15.9); WHITE BLOOD COUNT 8.1 K/mm3 (4.0-10.0)
[2025-01-04 10:09] LABS: POTASSIUM 4.3 mmol/L (3.5-5.1)
[2025-01-04 10:17] LABS: CALCIUM 9.1 mg/dL (8.5-10.1)
[2025-01-04 10:18] LABS: ALBUMIN 3.3 g/dl (3.4-5.0); BLOOD UREA NITROGEN 23.3 mg/dL (7-18); MAGNESIUM 2.1 mg/dL (1.8-2.4)
[2025-01-04 10:21] LABS: PHOSPHOROUS 3.2 mg/dL (2.5-4.9)
[2025-01-04 10:22] LABS: BILIRUBIN,TOTAL 1.5 mg/dL (0.2-1); TOT PROT 6.4 g/dl (6.4-8.2)
[2025-01-04] MEDS: metoPROLOL SUCCINATE 25 MG TAB.SR.24H (FP) PO SCH (10:35)
[2025-01-04] MEDS: FAMOTIDINE 20 MG TABLET PO SCH (10:36)
[2025-01-04] MEDS: CHOLECALCIFEROL (VIT D3) 1,000 UNIT (25 MCG) TABLET PO SCH (10:36)
[2025-01-04] MEDS: ASPIRIN COATED 81 MG TABLET.EC PO SCH (10:36)
[2025-01-04] MEDS: HEPARIN NA (PORCINE) 5,000 UNITS/ML 1ML VIAL SQ SCH (10:37)
[2025-01-04] MEDS: LACTOBACILLUS ACIDOPHILUS 1 TABLET PO SCH (10:37)
[2025-01-04] MEDS: ACETAMINOPHEN 1000 MG/100 ML BAG IVPB ONE (20:17)
[2025-01-04] MEDS: LORazepam 2 MG/ML SDV VIAL IVPUSH ONE (20:18)
[2025-01-04] MEDS: DONEPEZIL HCL 10 MG TABLET (FP) PO SCH (23:45)
[2025-01-04] MEDS: ATORVASTATIN CA 40 MG TABLET (FP) PO SCH (23:46)
[2025-01-04] MEDS: QUEtiapine FUMARATE 25 MG TABLET PO SCH (23:46)
[2025-01-05] MEDS: HALOPERIDOL LACTATE 5 MG/ML IM ONE (00:23)
[2025-01-05 09:55] LABS: BASO % 0.5 % (0-2.0); EOS % 2.7 % (0-4.5); HEMOGLOBIN 14.2 GM/dL (11.7-16.9); LYMPH % 10.2 % (8-40); MCH 30.4 pg (25.7-33.7); MCHC 34.6 g/dl (32.0-35.9); MEAN CELL VOLUME 88.1 fl (80-96); MEAN PLT VOLUME 12.1 fl (7.5-11.1); MONO % 12.5 % (3.8-10.2); NEUT % 74.1 % (42.8-82.8); PLATELET COUNT 139 10^3/uL (134-434); RBC 4.65 M/mm3 (4.00-5.60); RDW 13.3 % (11.9-15.9); WHITE BLOOD COUNT 8.3 K/mm3 (4.0-10.0)
[2025-01-05 10:15] LABS: POTASSIUM 3.9 mmol/L (3.5-5.1)
[2025-01-05 10:24] LABS: ALBUMIN 3.5 g/dl (3.4-5.0); BLOOD UREA NITROGEN 20.2 mg/dL (7-18)
[2025-01-05 10:29] LABS: BILIRUBIN,TOTAL 1.1 mg/dL (0.2-1)
[2025-01-05 10:30] LABS: CREATININE 0.9 mg/dL (0.55-1.3)
[2025-01-05 10:32] LABS: TOT PROT 6.7 g/dl (6.4-8.2)
[2025-01-06 08:46] LABS: BASO % 0.6 % (0-2.0); EOS % 3.8 % (0-4.5); HEMATOCRIT 41.8 % (35.4-49); HEMOGLOBIN 14.3 GM/dL (11.7-16.9); LYMPH % 13.1 % (8-40); MCH 30.4 pg (25.7-33.7); MCHC 34.3 g/dl (32.0-35.9); MEAN CELL VOLUME 88.7 fl (80-96); MEAN PLT VOLUME 11.5 fl (7.5-11.1); NEUT % 68.5 % (42.8-82.8); PLATELET COUNT 159 10^3/uL (134-434); RBC 4.71 M/mm3 (4.00-5.60); RDW 13.6 % (11.9-15.9); WHITE BLOOD COUNT 8.1 K/mm3 (4.0-10.0)
[2025-01-06 09:44] LABS: POTASSIUM 4.2 mmol/L (3.5-5.1)
[2025-01-06 09:51] LABS: ALBUMIN 3.4 g/dl (3.4-5.0); BLOOD UREA NITROGEN 18.7 mg/dL (7-18)
[2025-01-06 09:54] LABS: CREATININE 0.9 mg/dL (0.55-1.3)
[2025-01-06 09:55] LABS: BILIRUBIN,TOTAL 1.1 mg/dL (0.2-1); TOT PROT 6.6 g/dl (6.4-8.2)
[2025-01-08 09:05] LABS: INR 1.22 (0.83-1.09); PROTHROMBIN TIME (PATIENT) 13.3 SEC (9.7-13.0)
[2025-01-08 09:07] LABS: HEMATOCRIT 39.9 % (35.4-49); HEMOGLOBIN 13.8 GM/dL (11.7-16.9); MCH 30.8 pg (25.7-33.7); MCHC 34.5 g/dl (32.0-35.9); MEAN CELL VOLUME 89.5 fl (80-96); MEAN PLT VOLUME 11.5 fl (7.5-11.1); PLATELET COUNT 140 10^3/uL (134-434); RBC 4.46 M/mm3 (4.00-5.60); RDW 13.5 % (11.9-15.9); WHITE BLOOD COUNT 7.5 K/mm3 (4.0-10.0)
[2025-01-08 09:27] LABS: ALBUMIN 3.1 g/dl (3.4-5.0); CALCIUM 8.7 mg/dL (8.5-10.1); MAGNESIUM 2.2 mg/dL (1.8-2.4)
[2025-01-08 09:29] LABS: CREATININE 0.9 mg/dL (0.55-1.3)
[2025-01-08 09:31] LABS: TOT PROT 6.2 g/dl (6.4-8.2)
[2025-01-08 10:21] LABS: BASO % 0.7 % (0-2.0); EOS % 6.1 % (0-4.5); LYMPH % 13.5 % (8-40); MONO % 12.1 % (3.8-10.2); NEUT % 67.6 % (42.8-82.8)
[2025-01-08] MEDS: SODIUM CHLORIDE 1,000 ML IV SCH (15:39)
[2025-01-09] MEDS ORDERED: GENTAMICIN SO4 80 MG/2 ML VIAL ONE (07:21)
[2025-01-09] MEDS ORDERED: THROMBIN (BOVINE) 20,000 UNIT VIAL TP ONE (07:21)
[2025-01-09] MEDS ORDERED: LIDOCAINE 1%/EPI 1:100000 (20 ML MULTI DOSE VIAL) ONE (07:21)
[2025-01-09] MEDS ORDERED: BACITRACIN ZINC 15 GM TUBE TOPICAL OINTMENT ONE (07:33)
[2025-01-09] MEDS: ceFAZolin SODIUM 1 GM VIAL IVPB ONE ×2 (07:50→09:53)
[2025-01-09] MEDS: VANCOMYCIN 1 GM in D5W (PRE-DOCKED) 1,000 MG/250 ML (RESTRICTED TO ID ONLY IVPB ONE ×2 (07:51→09:53)
[2025-01-09] MEDS: LIDOCAINE 1%/EPI 1:100000 (20 ML MULTI DOSE VIAL) IJ ONE ×2 (07:51→09:54)
[2025-01-09] MEDS: GENTAMICIN SO4 80 MG/2 ML VIAL IVPB ONE ×2 (07:52→10:45)
[2025-01-09] MEDS: HYDROGEN PEROXIDE 473 ML PO ONE ×2 (07:54→10:45)
[2025-01-09] MEDS ORDERED: LIDOCAINE HCL/PF 2% SDV 5ML VIAL ONE (09:16)
[2025-01-09] MEDS ORDERED: ETOMIDATE 20 MG/10 ML VIAL IVPUSH ONE (09:16)
[2025-01-09] MEDS ORDERED: PROPOFOL 20 ML ONE (09:16)
[2025-01-09] MEDS ORDERED: ROCURONIUM BROMIDE 50 MG/5 ML SYRINGE ONE ×2 (09:17→10:22)
[2025-01-09] MEDS ORDERED: SUCCINYLCHOLINE CHLORIDE 200 MG/10 ML SYRINGE ONE (09:17)
[2025-01-09] MEDS ORDERED: MIDAZOLAM HCL 2 MG/2 ML SINGLE DOSE VIAL ONE (09:17)
[2025-01-09] MEDS ORDERED: HYDROmorphone HCl 2 MG/ML VIAL ONE (10:10)
[2025-01-09] MEDS ORDERED: BUPIVACAINE LIPOSOME/PF (EXPAREL) 266 MG/20 ML VIAL ONE (10:52)
[2025-01-09] MEDS ORDERED: BUPIVACAINE HCL/PF 0.5% (5MG/ML) 10 ML VIAL ONE (10:52)
[2025-01-09] MEDS ORDERED: SUGAMMADEX SODIUM 200 MG/2 ML VIAL ONE (11:30)
[2025-01-09] MEDS: BUPIVACAINE LIPOSOME/PF (EXPAREL) 266 MG/20 ML VIAL NR ONE ×2 (11:38)
[2025-01-09] MEDS: BUPIVACAINE HCL/PF 0.5% (5MG/ML) 10 ML VIAL IJ ONE ×2 (11:38)
[2025-01-09] MEDS ORDERED: oxyCODONE HCL 5 MG TABLET PO PRN (13:11)
[2025-01-09] MEDS ORDERED: diphenhydrAMINE HCL 25 MG CAPSULE (FP) PO PRN (13:11)
[2025-01-09] MEDS ORDERED: ONDANSETRON 4 MG/2 ML VIAL IVPUSH PRN (13:11)
[2025-01-09] MEDS ORDERED: ACETAMINOPHEN INJECTION 100 ML ONE (15:01)
[2025-01-09] MEDS: ACETAMINOPHEN 1000 MG/100 ML BAG IVPB SCH (15:06)
[2025-01-09] MEDS: SODIUM CHLORIDE 1,000 ML IV SCH (17:45)
[2025-01-09] MEDS: CEFAZOLIN 1 GM/D5W 1 GM/50 ML BAG IVPB SCH (17:55)
[2025-01-09] MEDS ORDERED: ACETAMINOPHEN 325 MG TABLET (FP) PO SCH (18:15)
[2025-01-09 19:13] LABS: HEMATOCRIT 36.8 % (35.4-49); HEMOGLOBIN 12.6 GM/dL (11.7-16.9); MCH 30.6 pg (25.7-33.7); MCHC 34.2 g/dl (32.0-35.9); MEAN CELL VOLUME 89.5 fl (80-96); MEAN PLT VOLUME 11.2 fl (7.5-11.1); PLATELET COUNT 148 10^3/uL (134-434); RBC 4.11 M/mm3 (4.00-5.60); RDW 13.9 % (11.9-15.9); WHITE BLOOD COUNT 11.2 K/mm3 (4.0-10.0)
[2025-01-09 19:19] LABS: INR 1.27 (0.83-1.09)
[2025-01-09] MEDS: LACTATED RINGERS SOLUTION 1,000 ML IV SCH ×2 (19:37)
[2025-01-09 19:39] LABS: POTASSIUM 4.8 mmol/L (3.5-5.1)
[2025-01-09] MEDS: DOCUSATE SODIUM 100 MG CAPSULE (FP) PO SCH (19:40)
[2025-01-09 19:41] LABS: CALCIUM 8.4 mg/dL (8.5-10.1)
[2025-01-09 19:42] LABS: BLOOD UREA NITROGEN 16.8 mg/dL (7-18)
[2025-01-09 19:45] LABS: CREATININE 0.9 mg/dL (0.55-1.3)
[2025-01-09 19:47] LABS: BILIRUBIN,TOTAL 1.2 mg/dL (0.2-1)
[2025-01-09] MEDS: LACTATED RINGERS SOLUTION 1,000 ML/1,000 ML INFUS.BAG IV SCH (20:07)
[2025-01-09 20:56] LABS: ANISOCYTOSIS 3+; MACROCYTOSIS 0
[2025-01-09] MEDS: ATORVASTATIN CA 40 MG TABLET (FP) PO SCH (23:00)
[2025-01-09] MEDS: QUEtiapine FUMARATE 25 MG TABLET PO SCH (23:00)
[2025-01-09] MEDS: DONEPEZIL HCL 10 MG TABLET (FP) PO SCH (23:00)
[2025-01-09] MEDS: LACTOBACILLUS ACIDOPHILUS 1 TABLET PO SCH (23:00)
[2025-01-10 09:12] LABS: BASO % 0.1 % (0-2.0); EOS % 0.3 % (0-4.5); HEMATOCRIT 36.3 % (35.4-49); HEMOGLOBIN 12.4 GM/dL (11.7-16.9); LYMPH % 4.7 % (8-40); MCH 30.5 pg (25.7-33.7); MCHC 34.2 g/dl (32.0-35.9); MEAN CELL VOLUME 89.1 fl (80-96); MEAN PLT VOLUME 11.1 fl (7.5-11.1); MONO % 10.4 % (3.8-10.2); NEUT % 84.5 % (42.8-82.8); PLATELET COUNT 122 10^3/uL (134-434); RBC 4.07 M/mm3 (4.00-5.60); RDW 13.7 % (11.9-15.9); WHITE BLOOD COUNT 12.8 K/mm3 (4.0-10.0)
[2025-01-10 09:17] LABS: INR 1.3 (0.83-1.09); PROTHROMBIN TIME (PATIENT) 14.2 SEC (9.7-13.0)
[2025-01-10] MEDS ORDERED: ASPIRIN COATED 81 MG TABLET.EC PO SCH (10:00)
[2025-01-10] MEDS: CHOLECALCIFEROL (VIT D3) 1,000 UNIT (25 MCG) TABLET PO SCH (10:34)
[2025-01-10] MEDS: FAMOTIDINE 20 MG TABLET PO SCH (10:34)
[2025-01-10] MEDS: metoPROLOL SUCCINATE 25 MG TAB.SR.24H (FP) PO SCH (10:34)
[2025-01-10] MEDS: FERROUS SO4 325 MG TABLET (FP) PO SCH (10:35)
[2025-01-10] MEDS: FOLIC ACID 1 MG TABLET (FP) PO SCH (10:35)
[2025-01-10] MEDS: HEPARIN NA (PORCINE) 5,000 UNITS/ML 1ML VIAL SQ SCH (10:35)
[2025-01-10 10:41] LABS: CALCIUM 8.5 mg/dL (8.5-10.1)
[2025-01-10 10:42] LABS: BLOOD UREA NITROGEN 15.6 mg/dL (7-18); MAGNESIUM 2.2 mg/dL (1.8-2.4)
[2025-01-10 10:45] LABS: CREATININE 0.7 mg/dL (0.55-1.3)
[2025-01-10 10:46] LABS: TOT PROT 5.8 g/dl (6.4-8.2)
[2025-01-10] MEDS: oxyCODONE HCL 5 MG TABLET PO PRN (11:48)
[2025-01-10] MEDS: morphine SULFATE 4 MG/ML VIAL IVPUSH PRN (16:23)
[2025-01-11 09:44] LABS: SGPT/ALT 97 U/L (13-61)
[2025-01-11 09:45] LABS: SGOT/AST 76 U/L (15-37)
[2025-01-11 09:47] LABS: ALK PHOS 222 U/L (45-117)
[2025-01-11 13:29] VITALS: RESP 18
[2025-01-11 19:03] VITALS: BP 144/79; PULSE 81; TEMP 99.9
== END 2025-01-11 20:48 | DRG 472 ==
LOC: JER 11:56 → JERBED 18:29 → J4W 12-28 01:04 → J8W 01-03 23:35
PROVIDERS: ADMIT Internal Medicine; ATTEND Internal Medicine
PROC: 01N10ZZ Release Cervical Nerve, Open Approach (ICD-10-PCS; 2025-01-09)
PROC: 4A1004G Monitoring of Central Nervous Electrical Activity, Intraoperative, Open Approach (ICD-10-PCS; 2025-01-09)
PROC: 0RG2071 Fusion of 2 or more Cervical Vertebral Joints with Autologous Tissue Substitute, Posterior Approach, Posterior Column, Open Approach (ICD-10-PCS; principal; 2025-01-09 09:00)
DX: M48.02 Spinal stenosis, cervical region (principal); F05 Delirium due to known physiological condition; I47.10 Supraventricular tachycardia, unspecified; G95.20 Unspecified cord compression; M47.12 Other spondylosis with myelopathy, cervical region; M54.12 Radiculopathy, cervical region; R29.6 Repeated falls; I10 Essential (primary) hypertension; K21.9 Gastro-esophageal reflux disease without esophagitis; R26.81 Unsteadiness on feet; F02.80 Dementia in other diseases classified elsewhere, unspecified severity, without behavioral disturbance, psychotic disturbance, mood disturbance, and anxiety; G30.9 Alzheimer's disease, unspecified; R82.81 Pyuria; E78.5 Hyperlipidemia, unspecified; R74.01 Elevation of levels of liver transaminase levels; N43.3 Hydrocele, unspecified; D72.829 Elevated white blood cell count, unspecified
CPT/HCPCS: 0241U-QW; 36415; 70450-TC; 70496-TC; 70498-TC; 70551-TC; 71045-TC-FY; 71250-TC; 72125-TC; 72141-TC; 72170-TC-FY; 73030-TC-RT-FY; 76000-TC-FY; 76705-TC; 76870-TC; 80048; 80053; 81003; 82962; 83735; 83970; 84075; 84100; 84439; 84443; 84450; 84460; 84484; 85025; 85027; 85610; 85730; 86850; 86900; 86901; 87040; 93005; 93010; 93306-TC; 94760; 97116-GP; 97161-GP; 99285-25; J0131; J1644; Q9967

== ENCOUNTER 2025-09-05 16:58 | Inpatient (IN) | payer OTHER ==
[2025-09-05] MEDS ORDERED: ACETAMINOPHEN INJECTION 100 ML ONE (17:40)
[2025-09-05] MEDS: ACETAMINOPHEN 1000 MG/100 ML BAG IVPB ONE (18:02)
[2025-09-05] MEDS: SODIUM CHLORIDE 0.9% 500 ML INFUS.BAG IV ONE (18:02)
[2025-09-05 18:07] LABS: BASOPHILS # 0.04 x10^3/uL (0.01-0.08); RDW 13.7 % (12.2-16.6)
[2025-09-05 18:08] LABS: ABSOLUTE IMMATURE GRANULOCYTES 0.02 x10^3/uL (0.0-0.031); EOSINOPHIL % 5.9 % (0.8-7.0); EOSINOPHILS # 0.55 x10^3/uL (0.04-0.54); IMMATURE PLATELET FRACTION # 15.00 x10^3/uL; MCHC 32.8 g/dl (32.3-36.5); MEAN CELL VOLUME 92.0 fl (79.0-92.2); MEAN PLT VOLUME 13.8 fl (9.4-12.4); MONOCYTE # 0.87 x10^3/uL (0.30-0.82); MONOCYTE % 9.3 % (5.3-12.2)
[2025-09-05 18:50] LABS: GLUCOSE,RANDOM 88.0 mg/dL (74-106); TOT PROT 6.0 g/dl (6.4-8.2)
[2025-09-05 18:51] LABS: CO2 24.0 mmol/L (21-32)
[2025-09-05 18:53] LABS: ALK PHOS 97.0 U/L (40-150)
[2025-09-05 18:56] LABS: CREATININE 0.83 mg/dL (0.55-1.3); SGOT/AST 25.0 U/L (5-34); SGPT/ALT 21.0 U/L (0-55)
[2025-09-05 23:57] LABS: INR 1.26 (0.83-1.09); PROTHROMBIN TIME (PATIENT) 13.7 SEC (9.7-13.0)
[2025-09-06] LABS: ACTIVATED PTT 35.8 SECONDS (25.2-36.5)
[2025-09-06 00:57] VITALS: BMI 22.1
[2025-09-06 01:17] LABS: URINE COLOR YELLOW
[2025-09-06 01:20] LABS: URINE APPEARANCE CLEAR; URINE GLUCOSE (UA) NEGATIVE (NEGATIVE)
[2025-09-06 01:23] LABS: URINE BILIRUBIN NEGATIVE (NEGATIVE); URINE KETONE NEGATIVE (NEGATIVE); URINE NITRITE NEGATIVE (NEGATIVE); URINE PROTEIN NEGATIVE (NEGATIVE); URINE UROBILINOGEN 0.2 mg/dL (0.2-1.0)
[2025-09-06 01:24] LABS: URINE LEUK ESTERASE 2+ (NEGATIVE)
[2025-09-06 08:40] LABS: ABSOLUTE IMMATURE GRANULOCYTES 0.02 x10^3/uL (0.0-0.031); BASOPHILS # 0.03 x10^3/uL (0.01-0.08)
[2025-09-06 08:42] LABS: EOSINOPHIL % 8.2 % (0.8-7.0); EOSINOPHILS # 0.55 x10^3/uL (0.04-0.54); IMMATURE PLATELET FRACTION # 10.90 x10^3/uL; MCHC 32.4 g/dl (32.3-36.5); MEAN CELL VOLUME 93.0 fl (79.0-92.2); MEAN PLT VOLUME 13.0 fl (9.4-12.4); MONOCYTE # 0.68 x10^3/uL (0.30-0.82); MONOCYTE % 10.1 % (5.3-12.2); RDW 13.4 % (12.2-16.6)
[2025-09-06 09:09] LABS: GLUCOSE,RANDOM 79.0 mg/dL (74-106); TOT PROT 5.7 g/dl (6.4-8.2)
[2025-09-06 09:10] LABS: CO2 26.0 mmol/L (21-32)
[2025-09-06 09:12] LABS: ALK PHOS 94.0 U/L (40-150)
[2025-09-06 09:14] LABS: SGPT/ALT 19.0 U/L (0-55)
[2025-09-06 09:15] LABS: CREATININE 0.79 mg/dL (0.55-1.3)
[2025-09-06] MEDS: METOPROLOL TARTRATE 25 MG TABLET (FP) PO SCH (10:05)
[2025-09-06] MEDS: MEMANTINE HCL 10 MG TABLET (FP) PO SCH ×2 (10:05→21:40)
[2025-09-06] MEDS: FOLIC ACID 1 MG TABLET (FP) PO SCH (10:05)
[2025-09-06] MEDS ORDERED: THROMBIN (BOVINE) 5,000 UNIT VIAL TP ONE (10:43)
[2025-09-06] MEDS ORDERED: BACITRACIN ZINC 15 GM TUBE TOPICAL OINTMENT ONE (10:43)
[2025-09-06] MEDS ORDERED: LIDOCAINE 1%/EPI 1:100000 (20 ML MULTI DOSE VIAL) ONE (10:44)
[2025-09-06] MEDS ORDERED: GENTAMICIN SO4 80 MG/2 ML VIAL ONE (10:55)
[2025-09-06 11:11] LABS: SGOT/AST 26.0 U/L (5-34)
[2025-09-06] MEDS ORDERED: LIDOCAINE HCL 2% 100 MG/5 ML DISP.SYRIN ONE (11:36)
[2025-09-06] MEDS ORDERED: PROPOFOL 20 ML ONE (11:37)
[2025-09-06] MEDS ORDERED: ROCURONIUM BROMIDE 50 MG/5 ML SYRINGE ONE ×2 (11:37→12:11)
[2025-09-06] MEDS ORDERED: SUCCINYLCHOLINE CHLORIDE 200 MG/10 ML SYRINGE ONE (11:37)
[2025-09-06] MEDS ORDERED: BUPIVACAINE LIPOSOME/PF (EXPAREL) 266 MG/20 ML VIAL ONE (11:51)
[2025-09-06] MEDS ORDERED: VANCOMYCIN 1,000 MG VIAL (RESTRICTED TO ID ONLY) ONE (11:51)
[2025-09-06] MEDS: VANCOMYCIN 1,000 MG VIAL (RESTRICTED TO ID ONLY) IVPB ONE (12:08)
[2025-09-06] MEDS: ceFAZolin 2 GRAM PREMIX BAG IVPB ONE (12:08)
[2025-09-06] MEDS: LIDOCAINE 1%/EPI 1:100000 (50 ML MULTI DOSE VIAL) NR ONE (12:10)
[2025-09-06] MEDS ORDERED: SUGAMMADEX SODIUM 200 MG/2 ML VIAL ONE (12:14)
[2025-09-06] MEDS: THROMBIN (BOVINE) 20,000 UNIT VIAL TP ONE (12:27)
[2025-09-06] MEDS: HYDROGEN PEROXIDE 473 ML PO ONE ×2 (12:28→12:31)
[2025-09-06] MEDS: GENTAMICIN SO4 80 MG/2 ML VIAL IVPB ONE ×2 (12:28→12:46)
[2025-09-06] MEDS ORDERED: ePHEDrine SULFATE 50 MG/1 ML AMPULE ONE (12:38)
[2025-09-06] MEDS: BUPIVACAINE HCL/PF 0.5% (5MG/ML) 10 ML VIAL IJ ONE (13:28)
[2025-09-06] MEDS: BUPIVACAINE LIPOSOME/PF (EXPAREL) 266 MG/20 ML VIAL NR ONE (13:28)
[2025-09-06] MEDS ORDERED: ONDANSETRON 4 MG/2 ML VIAL IVPUSH PRN ×2 (14:13→14:24)
[2025-09-06] MEDS ORDERED: diphenhydrAMINE HCL 25 MG CAPSULE (FP) PO PRN (14:24)
[2025-09-06] MEDS ORDERED: ACETAMINOPHEN INJECTION 100 ML ONE (15:15)
[2025-09-06] MEDS: ACETAMINOPHEN 1000 MG/100 ML BAG IVPB ONE (15:15)
[2025-09-06] MEDS: LACTATED RINGERS SOLUTION 1,000 ML/1,000 ML INFUS.BAG IV SCH ×2 (15:19)
[2025-09-06] MEDS: CEFAZOLIN 1 GM in DEXTROSE 5%-WATER - 50 ML IVPB SCH (17:04)
[2025-09-06] MEDS: ACETAMINOPHEN 325 MG TABLET (FP) PO SCH (21:39)
[2025-09-06] MEDS: DONEPEZIL HCL 10 MG TABLET (FP) PO SCH (21:40)
[2025-09-06] MEDS: DOCUSATE SODIUM 100 MG CAPSULE (FP) PO SCH (21:40)
[2025-09-06] MEDS: ATORVASTATIN CA 40 MG TABLET (FP) PO SCH (21:43)
[2025-09-06] MEDS: HEPARIN NA (PORCINE) 5,000 UNITS/ML 1ML VIAL SQ SCH (21:43)
[2025-09-06] MEDS ORDERED: ATORVASTATIN CA 40 MG TABLET (FP) PO SCH (22:00)
[2025-09-06] MEDS ORDERED: DONEPEZIL HCL 10 MG TABLET (FP) PO SCH (22:00)
[2025-09-07 06:52] VITALS: RESP 18
[2025-09-07 09:01] LABS: ABSOLUTE IMMATURE GRANULOCYTES 0.04 x10^3/uL (0.0-0.031); BASOPHILS # 0.02 x10^3/uL (0.01-0.08); EOSINOPHIL % 0.1 % (0.8-7.0); EOSINOPHILS # 0.01 x10^3/uL (0.04-0.54); MCHC 32.3 g/dl (32.3-36.5); MEAN CELL VOLUME 91.8 fl (79.0-92.2); MEAN PLT VOLUME 13.0 fl (9.4-12.4); MONOCYTE # 1.04 x10^3/uL (0.30-0.82); MONOCYTE % 8.4 % (5.3-12.2); RDW 13.7 % (12.2-16.6)
[2025-09-07] MEDS: FOLIC ACID 1 MG TABLET (FP) PO SCH (09:22)
[2025-09-07] MEDS: METOPROLOL TARTRATE 25 MG TABLET (FP) PO SCH (09:22)
[2025-09-07 11:15] LABS: GLUCOSE,RANDOM 88.0 mg/dL (74-106); TOT PROT 5.3 g/dl (6.4-8.2)
[2025-09-07 11:16] LABS: CO2 24.0 mmol/L (21-32)
[2025-09-07 11:18] LABS: ALK PHOS 103.0 U/L (40-150)
[2025-09-07 11:21] LABS: CREATININE 0.76 mg/dL (0.55-1.3); SGOT/AST 39.0 U/L (5-34); SGPT/ALT 31.0 U/L (0-55)
[2025-09-07] MEDS: HEPARIN NA (PORCINE) 5,000 UNITS/ML 1ML VIAL SQ SCH (15:45)
[2025-09-07] MEDS: LACTATED RINGERS SOLUTION 1,000 ML IV SCH (15:45)
[2025-09-07 18:25] VITALS: BP 122/58; PULSE 75; TEMP 97.9
[2025-09-07] MEDS: ACETAMINOPHEN 1000 MG/100 ML BAG IVPB ONE (18:54)
== END 2025-09-07 19:30 | disposition home health service (06) | DRG 472 ==
LOC: JER 16:58 → JERBED 22:56 → J7W 09-06 00:44 → J8W 09-06 16:36
PROVIDERS: ADMIT Student in an Organized Health Care Education/Training Program
PROC: 01N10ZZ Release Cervical Nerve, Open Approach (ICD-10-PCS; 2025-09-06)
PROC: 4A1004G Monitoring of Central Nervous Electrical Activity, Intraoperative, Open Approach (ICD-10-PCS; 2025-09-06)
PROC: 0RG10J1 Fusion of Cervical Vertebral Joint with Synthetic Substitute, Posterior Approach, Posterior Column, Open Approach (ICD-10-PCS; principal; 2025-09-06 15:00)
DX: M48.02 Spinal stenosis, cervical region (principal); M47.12 Other spondylosis with myelopathy, cervical region; F03.90 Unspecified dementia, unspecified severity, without behavioral disturbance, psychotic disturbance, mood disturbance, and anxiety; K21.9 Gastro-esophageal reflux disease without esophagitis; I10 Essential (primary) hypertension; E78.5 Hyperlipidemia, unspecified; E04.1 Nontoxic single thyroid nodule; M54.12 Radiculopathy, cervical region; M79.602 Pain in left arm; M54.2 Cervicalgia; M25.512 Pain in left shoulder
CPT/HCPCS: 36415; 70450-TC; 71045-TC-FY; 72125-TC; 72141-TC; 76000-TC-FY; 80048; 80053; 81003; 83735; 84100; 84484; 85025; 85610; 85730; 86850; 86900; 86901; 87086; 93005; 93010; 93971-TC-LT; 94760; 97116-GP; 97162-GP; 99285-25; C1713; J0666